=== PATIENT | female | born 1995 | race Two or more races ===

== ENCOUNTER 2017-09-30 13:01 | Emergency (ER) | payer BC ==
[~2017-09-30] VITALS: Ht 157.5 cm; Wt 52.6 kg
[2017-09-30 14:07] VITALS: BP 141/82
== END 2017-09-30 14:43 | disposition home or self-care (01) ==
LOC: ER 13:01
DX: S01.03XA Puncture wound without foreign body of scalp, initial encounter (principal); W22.8XXA Striking against or struck by other objects, initial encounter; Y93.89 Activity, other specified; Y99.8 Other external cause status; Y92.89 Other specified places as the place of occurrence of the external cause
CPT/HCPCS: 70450